=== PATIENT | male | born 1990 | race Hispanic/Latino ===

== ENCOUNTER 2020-02-01 21:21 | Emergency (ER) | payer SELFPAY ==
[~2020-02-01] VITALS: Ht 177.8 cm; Wt 88.5 kg
[2020-02-01] MEDS ORDERED: TETRACAINE HCL 0.5% OPTH SOLN 4 ML BTL ONE (21:36)
[2020-02-01] MEDS ORDERED: FLUORESCEIN SOD(OPTH) 1 MG STRP ONE (21:37)
[2020-02-01] MEDS ORDERED: TETRACAINE HCL 0.5% OPTH SOLN 4 ML BTL OP ONE (21:45)
[2020-02-01] MEDS ORDERED: FLUORESCEIN SOD(OPTH) 1 MG STRP OP ONE ×2 (21:45→22:00)
== END 2020-02-01 23:11 | disposition left against medical advice (07) ==
LOC: FSED 21:52
DX: T15.92XA Foreign body on external eye, part unspecified, left eye, initial encounter (principal); H57.12 Ocular pain, left eye
CPT/HCPCS: 99283